=== PATIENT | male | born 1950 | race Caucasian/White ===

== ENCOUNTER 2018-01-29 08:19 | Emergency (ER) | payer MEDICARE, BC, OTHER ==
[2018-01-29 08:34] VITALS: BP 146/89
--- NOTE | 2018-01-29 08:37 | EDM.PDOC ---
ED HPI GENERAL MEDICAL PROBLEM - General Chief Complaint: Headache Stated Complaint: HEAD PAIN R SIDE Time Seen by Provider: 01/29/18 08:32 - History of Present Illness INITIAL COMMENTS - FREE TEXT/NARRATIVE: 59-year-old male presents emergency room with headaches. these headaches started a couple days ago the air intermittent very brief but sharp. There localized to the right gnosticism. He has not had an associated rash with this no burning or tingling associated with this. Patient is treated for high blood pressure he has not had problems like this in the past. The headaches are not associated with photophobia and nausea or vomiting. He has not had any fevers or chills associated neck pain. Patient has not had any other symptoms going on at this point. - Related Data Allergies Allergy/AdvReac Type Severity Reaction Status Date / Time No Known Allergies Allergy Verified 01/29/18 08:27 Home Meds: Home Meds .Megamultivitamin 4 tab PO TID 07/29/15 [History] Cardio Vid Plus 2 tab PO DAILY 07/29/15 [History] Cholecalciferol (Vitamin D3) [Vitamin D3] 5,000 unit PO BID 07/29/15 [History] Krill Oil 3 tab PO DAILY 07/29/15 [History] Zinc Amino Acid Chelate [Zinc] 4 tab PO TID 07/29/15 [History] Multivitamins,Therapeutic [Thera] 1 each PO WITHBREAKFAST tablet 08/03/15 [Rx] Past Medical History HEENT History: Reports: Cataract, Hard of Hearing Cardiovascular History: Reports: None Respiratory History: Reports: Sleep Apnea Gastrointestinal History: Reports: None Genitourinary History: Reports: Other (See Below) Other Genitourinary History: urinary frequency, patient is taking a prostate and bladder suppliment Musculoskeletal History: Reports: Osteoarthritis (right knee) Other Musculoskeletal History: Right knee osteoarthritis Neurological History: Reports: None Psychiatric History: Reports: None Endocrine/Metabolic History: Reports: Other (See Below) Other Endocrine/Metabolic History: Patient takes a thyroid supplement Hematologic History: Reports: None Immunologic History: Reports: None, Other (See Below) Oncologic (Cancer) History: Reports: None Dermatologic History: Reports: Other (See Below) Other Dermatologic History: history of fatty tumors with subsequent removal X 4 - Past Surgical History HEENT Surgical History: Reports: Cataract Surgery GI Surgical History: Reports: Hernia, Abdominal Musculoskeletal Surgical History: Reports: Knee Replacement Dermatological Surgical History: Reports: Other (See Below) Social & Family History - Family History Cardiac: Reports: [place] Respiratory: Reports: COPD, Sleep Apnea Neurological: Reports: CVA, Dementia Oncologic: Reports: Breast - Caffeine Use Caffeine Use: Reports: Coffee - Living Situation & Occupation Living situation: Reports: , with Spouse Occupation: Employed ED ROS GENERAL - Review of Systems Review Of Systems: See Below Constitutional: Reports: No Symptoms HEENT: Reports: No Symptoms Respiratory: Reports: Cough (Minimal mild nonproductive). Denies: No Symptoms, Shortness of Breath Cardiovascular: Reports: No Symptoms Endocrine: Reports: No Symptoms GI/Abdominal: Reports: No Symptoms : Reports: No Symptoms Musculoskeletal: Reports: No Symptoms Skin: Reports: No Symptoms Neurological: Reports: Headache Psychiatric: Reports: No Symptoms Hematologic/Lymphatic: Reports: No Symptoms Immunologic: Reports: No Symptoms - Physical Exam Exam: See Below Exam Limited By: No Limitations General Appearance: Alert, No Apparent Distress Eye Exam: Bilateral Eye: EOMI, PERRL Ears: Normal External Exam, Normal Canal, Hearing Grossly Normal, Normal TMs Nose: Normal Inspection, Normal Mucosa, No Blood Throat/Mouth: Normal Inspection, Normal Lips, Normal Teeth, Normal Gums, Normal Oropharynx, Normal Voice, No Airway Compromise Head Exam: Atraumatic, Normocephalic, Other (Nontender with palpation no palpation over the right temporal artery) Neck: Normal Inspection, Supple, Non-Tender, Full Range of Motion. No: Lymphadenopathy (L), Lymphadenopathy (R) Respiratory/Chest: No Respiratory Distress, Lungs Clear, Normal Breath Sounds Cardiovascular: Regular Rate, Rhythm, No Edema, No Murmur GI/Abdominal: Normal Bowel Sounds, Soft, Non-Tender Neuro Exam (Abbreviated): Alert, Oriented, Normal Cognition, Other (Cranial nerves II through XII grossly intact all muscle groups the upper extremities are equal and appropriate bilaterally deep tendon reflexes the brachial radialis is normal bilaterally cerebellar testing normal) Back Exam: Normal Inspection, Other (Mild paraspinous muscle tightness in the right cervical and upper thoracic region this does not appear to be tender with palpation). No: CVA Tenderness (L), CVA Tenderness (R) Extremities: Normal Inspection, Non-Tender, No Pedal Edema Psychiatric: Normal Affect, Normal Mood Skin Exam: Warm, Dry, Intact, Normal Color, No Rash, Other (Attention was paid behind the hair into the area of the right gnosticism no rash evident) Course - Vital Signs Last Recorded V/S: Last Vital Signs Temp 36.7 C 01/29/18 08:30 Pulse 78 01/29/18 08:30 Resp 14 01/29/18 08:30 BP 146/89 H 01/29/18 08:30 Pulse Ox 96 01/29/18 08:30 - Orders/Labs/Meds Orders: Active Orders 24 hr Category Date Time Status EKG Documentation Completion [RC] STAT Care 01/29/18 08:52 Active Chest 2V [CR] Stat Exams 01/29/18 08:52 Taken Labs: Laboratory Tests 01/29/18 01/29/18 01/29/18 Range/Units 09:25 09:25 09:25 WBC 6.31 (4.23-9.07) K/mm3 RBC 5.36 (4.63-6.08) M/mm3 Hgb 15.5 (13.7-17.5) gm/L Hct 45.6 (40.1-51.0) % MCV 85.1 (79.0-92.2) fl MCH 28.9 (25.7-32.2) pg MCHC 34.0 (32.2-35.5) g/dl RDW Std Deviation 43.4 (35.1-43.9) fL Plt Count 265 (163-337) K/mm3 MPV 9.0 L (9.4-12.3) fl Neutrophils % (Manual) 63 H (40-60) % Band Neutrophils % 0 (0-10) % Lymphocytes % (Manual) 28 (20-40) % Atypical Lymphs % 0 % Monocytes % (Manual) 8 (2-10) % Eosinophils % (Manual) 1 (0.8-7.0) % Basophils % (Manual) 0 L (0.2-1.2) Platelet Estimate Adequate RBC Morph Comment Normal ESR 7 (0-15) mm/hr Sodium 136 (136-145) mEq/L Potassium 4.0 (3.5-5.1) mEq/L Chloride 103 (98-107) mEq/L Carbon Dioxide 27 (21-32) mEq/L Anion Gap 10.0 (5-15) BUN 16 (7-18) mg/dL Creatinine 0.7 (0.7-1.3) mg/dL Est Cr Clr Drug Dosing 104.29 mL/min Estimated GFR (MDRD) > 60 (>60) mL/min BUN/Creatinine Ratio 22.9 H (14-18) Glucose 109 (80-115) mg/dL Calcium 9.0 (8.5-10.1) mg/dL Total Bilirubin 0.6 (0.2-1.0) mg/dL AST 20 (15-37) U/L ALT 33 (16-63) U/L Alkaline Phosphatase 80 (46-116) U/L C-Reactive Protein < 0.2 (<1.0) mg/dL Total Protein 6.9 (6.4-8.2) g/dl Albumin 3.6 (3.4-5.0) g/dl Globulin 3.3 gm/dL Albumin/Globulin Ratio 1.1 (1-2) TSH 3rd Generation 1.490 (0.358-3.74) uIU/mL - Re-Assessments/Exams Free Text/Narrative Re-Assessment/Exam: 01/29/18 11:08 Workup is essentially unremarkable including labs with inflammatory markers head CT. Case was discussed with his regular physician Dr. Choe will get him scheduled for outpatient MRI and close follow-up Tylenol for discomfort Departure - Departure Time of Disposition: 11:02 Disposition: Home, Self-Care 01 Clinical Impression: Headache - Discharge Information Referrals: Lucas Gregorio MD [Primary Care Provider] - Forms: ED Department Discharge Additional Instructions: Return to the emergency room with any questions problems worsening symptoms. Return with any rash or worsening sensation on the side your head. Follow-up with the MRI as scheduled Follow-up with Dr. Choe on Saturday and after the MRI. - My Orders Last 24 Hours: My Active Orders 01/29/18 08:52 EKG Documentation Completion [RC] STAT Chest 2V [CR] Stat - Assessment/Plan Last 24 Hours: My Active Orders 01/29/18 08:52 EKG Documentation Completion [RC] STAT Chest 2V [CR] Stat
--- NOTE | 2018-01-29 10:13 | CT ---
Head CT Technique: Multiple axial sections through the brain were obtained. Intravenous contrast was not utilized. Comparison: No prior intracranial imaging. Findings: Ventricles long of basal cisterns and sulci over the convexities are moderately prominent. Mild diminished density is noted within portions of the periventricular white matter compatible with small vessel ischemic demyelination change. 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 No evidence of intracranial hemorrhage. No midline shift or mass effect is seen. Bone window settings were reviewed which shows no acute calvarial abnormality. Visualized sinuses are clear. Impression: 1. Senescent change as noted above. Nothing acute is appreciated on noncontrast head CT study. Diagnostic code #2
--- NOTE | 2018-01-30 08:20 | CR ---
Chest: Two views of the chest were obtained. Comparison: No prior chest x-ray. Heart size is normal. Tortuous thoracic aorta is seen. Lungs are clear. Bony structures show degenerative spurring within the spine. Impression: 1. Nothing acute is seen on two-view chest x-ray. Diagnostic code #2
== END 2018-01-29 11:33 | disposition home or self-care (01) ==
LOC: JD.ED 08:19
DX: R51 Headache (principal); M54.2 Cervicalgia
CPT/HCPCS: 36415; 70450; 70450-26; 71046; 71046-26; 80053; 84443; 85007; 85027; 85652; 86140; 93005; 93010; 99284-25; 99285-25

== ENCOUNTER 2019-07-05 17:11 | Emergency (ER) | payer MEDICARE, BC, OTHER ==
[2019-07-05 17:20] VITALS: BP 148/95; PULSE 67
[2019-07-05] MEDS ORDERED: Diphtheria,Pertussis(Acell),Tetanus Vaccine 0.5 ML Syringe IM ONE (17:51)
--- NOTE | 2019-07-05 17:57 | EDM.PDOC ---
ED HPI GENERAL MEDICAL PROBLEM - General Chief Complaint: Laceration Stated Complaint: HEAD LAC Time Seen by Provider: 07/05/19 17:33 Source of Information: Reports: Patient, RN Notes Reviewed History Limitations: Reports: No Limitations - History of Present Illness INITIAL COMMENTS - FREE TEXT/NARRATIVE: Patient is a 69-year-old male who presents to the ED for evaluation of a head laceration. Patient notes he and his brother were working on some things, his brother was wielding a hammer, and he was not paying attention, nor was his brother, and he ended up getting hit on the left eyebrow with declogged with a hammer. This hit him very lightly, however it did result into 1 cm linear lacerations to just above the left distal eyebrow. Patient did not have any loss of consciousness, he did not have any lightheaded or dizziness after the injury. He is not on any blood thinners. He is not complaining of any blurred vision or double vision at this time. He is unsure of his last booster however. He is not complaining of any headache. - Related Data Allergies Allergy/AdvReac Type Severity Reaction Status Date / Time No Known Allergies Allergy Verified 07/05/19 17:20 Home Meds: Home Meds .Megamultivitamin 4 tab PO TID 07/29/15 [History] Cardio Vid Plus 2 tab PO DAILY 07/29/15 [History] Cholecalciferol (Vitamin D3) [Vitamin D3] 5,000 unit PO BID 07/29/15 [History] Krill Oil 3 tab PO DAILY 07/29/15 [History] Zinc Amino Acid Chelate [Zinc] 4 tab PO TID 07/29/15 [History] Multivitamins,Therapeutic [Thera] 1 each PO WITHBREAKFAST tablet 08/03/15 [Rx] Past Medical History HEENT History: Reports: Cataract, Hard of Hearing Respiratory History: Reports: Sleep Apnea Genitourinary History: Reports: Other (See Below) Other Genitourinary History: urinary frequency, patient is taking a prostate and bladder suppliment Musculoskeletal History: Reports: Osteoarthritis Other Musculoskeletal History: Right knee osteoarthritis Endocrine/Metabolic History: Reports: Other (See Below) Other Endocrine/Metabolic History: Patient takes a thyroid supplement Dermatologic History: Reports: Other (See Below) Other Dermatologic History: history of fatty tumors with subsequent removal X 4 - Past Surgical History HEENT Surgical History: Reports: Cataract Surgery GI Surgical History: Reports: Hernia, Abdominal Musculoskeletal Surgical History: Reports: Knee Replacement Dermatological Surgical History: Reports: Other (See Below) Social & Family History - Family History Cardiac: Reports: [place] Respiratory: Reports: COPD, Sleep Apnea Neurological: Reports: CVA, Dementia Oncologic: Reports: Breast - Tobacco Use Smoking Status *Q: Never Smoker Second Hand Smoke Exposure: No - Caffeine Use Caffeine Use: Reports: None - Recreational Drug Use Recreational Drug Use: No - Living Situation & Occupation Living situation: Reports: , with Spouse Occupation: Employed ED ROS GENERAL - Review of Systems Review Of Systems: Comprehensive ROS is negative, except as noted in HPI. ED EXAM, SKIN/RASH Exam: See Below Exam Limited By: No Limitations General Appearance: Alert, WD/WN, No Apparent Distress Eye Exam: Bilateral Eye: EOMI, Normal Inspection, PERRL Ears: Normal External Exam, Normal Canal, Hearing Grossly Normal, Normal TMs Nose: Normal Inspection Throat/Mouth: Normal Inspection, Normal Lips, Normal Teeth, Normal Gums, Normal Oropharynx, Normal Voice, No Airway Compromise Head: Normocephalic, Other (see skin assessment) Neck: Normal Inspection Respiratory/Chest: No Respiratory Distress, Lungs Clear, Normal Breath Sounds, No Accessory Muscle Use, Chest Non-Tender Cardiovascular: Normal Peripheral Pulses, Regular Rate, Rhythm, No Murmur Extremities: Normal Inspection, Normal Capillary Refill Neurological: Alert, Oriented, CN II-XII Intact (grossly), Normal Cognition, Normal Gait, No Motor/Sensory Deficits Psychiatric: Normal Affect, Normal Mood Skin: Warm, Dry, Normal Color, No Rash, Wound/Incision (2, 1 cm linear lacerations to the superior left distal eyebrow, there is a little bit of bleeding, but not a profuse amount.) Location, Skin: Face ED SKIN PROCEDURES - Laceration/Wound Repair Left Lateral Face Appearance: Superficial, Clean Distal NVT: Neuro & Vascular Intact, No Tendon Injury Skin Prep: Chlorhexidine (Hibiciens), Saline Exploration/Debridement/Repair: Wound Explored, In a Bloodless Field, Explored to Base Closed with: Dermabond Lac/Wound length In cm: 1 (X2) Sterile Dressing Applied: Nurse Tetanus Status Addressed: Yes (updated at today's visit) Complications: No Course - Vital Signs Last Recorded V/S: Last Vital Signs Temp 98 F 07/05/19 17:16 Pulse 67 07/05/19 17:16 Resp 16 07/05/19 17:16 BP 148/95 H 07/05/19 17:16 Pulse Ox 94 L 07/05/19 17:16 - Orders/Labs/Meds Orders: Active Orders 24 hr Category Date Time Status Vaccines to be Administered [RC] PER UNIT ROUTINE Care 07/05/19 17:52 Ordered Diphth,Pertuss(Acell),Tet Vac [Adacel] Med 07/05/19 17:51 Once 0.5 ml IM .ONCE ONE - Re-Assessments/Exams Free Text/Narrative Re-Assessment/Exam: 07/05/19 17:57 Patient presents to the ED for evaluation of his eyebrow laceration. This is superficial enough, that it can be closed with Dermabond. Patient would prefer to have it closed with Dermabond versus sutures. He will had of his tetanus booster updated at today's visit. Departure - Departure Time of Disposition: 17:57 Disposition: Home, Self-Care 01 Condition: Fair Clinical Impression: Forehead laceration Qualifiers: Encounter type: initial encounter Qualified Code(s): S01.81XA - Laceration without foreign body of other part of head, initial encounter - Discharge Information *PRESCRIPTION DRUG MONITORING PROGRAM REVIEWED*: No *COPY OF PRESCRIPTION DRUG MONITORING REPORT IN PATIENT MARYELLEN: No Instructions: Facial Laceration, [id number]-[id number] Referrals: Lucas Gregorio MD [Primary Care Provider] - Additional Instructions: You were evaluated in the ER today for your forehead laceration. Please keep the area clean and dry, you may cleanse with soapy water as needed. Your wound was repaired with Dermabond, this will eventually wear itself off over the next few days. Please keep an eye out for any sort of redness, swelling, or pain at the site as this would suggest an infection and you should have it reevaluated. Please return to the ER at any time if your symptoms change or worsen. Sepsis Event Note - Evaluation Sepsis Screening Result: No Definite Risk - Focused Exam Vital Signs: Vital Signs Temp Pulse Resp BP Pulse Ox 07/05/19 17:16 98 F 67 16 148/95 H 94 L Date Exam was Performed: 07/05/19 Time Exam was Performed: 17:52 - My Orders Last 24 Hours: My Active Orders 07/05/19 17:51 Diphth,Pertuss(Acell),Tet Vac [Adacel] 0.5 ml IM .ONCE ONE 07/05/19 17:52 Vaccines to be Administered [RC] PER UNIT ROUTINE - Assessment/Plan Last 24 Hours: My Active Orders 07/05/19 17:51 Diphth,Pertuss(Acell),Tet Vac [Adacel] 0.5 ml IM .ONCE ONE 07/05/19 17:52 Vaccines to be Administered [RC] PER UNIT ROUTINE
== END 2019-07-05 18:20 | disposition home or self-care (01) ==
LOC: JD.ED 17:11
DX: S01.112A Laceration without foreign body of left eyelid and periocular area, initial encounter (principal); Z79.899 Other long term (current) drug therapy; Z23 Encounter for immunization; W27.8XXA Contact with other nonpowered hand tool, initial encounter
CPT/HCPCS: 12011; 90471; 90715; 99282; 99283